=== PATIENT | male | born 1960 | race Caucasian/White ===

== ENCOUNTER 2021-03-19 17:02 | Emergency (ER) | payer OTHER ==
[~2021-03-19] VITALS: Ht 177.8 cm; Wt 100.0 kg
[2021-03-19 19:48] VITALS: BP 117/68
== END 2021-03-19 19:44 | disposition home or self-care (01) | DRG 179 ==
LOC: ED 17:02
DX: U07.1 COVID-19 (principal); E11.9 Type 2 diabetes mellitus without complications; M19.90 Unspecified osteoarthritis, unspecified site; F17.210 Nicotine dependence, cigarettes, uncomplicated